=== PATIENT | male | born 1940 ===

== ENCOUNTER 2017-01-12 14:57 | Inpatient (IN) | payer MEDICARE, BC ==
[~2017-01-12] VITALS: Ht 180.3 cm; Wt 93.0 kg
--- NOTE | 2017-01-12 17:05 | NUR ---
ADMITTED A 76 YEAR OLD MALE PATIENT FROM [facility] WITH ADMITTING DIAGNOSIS OF LEFT ANKLE FRACTURE, ACCOMPANIED BY 2 EMT STAFF ON A GURNEY VIA AMBULANCE PT IS ALERT AND ORIENTED, ABLE TO VERBALIZE NEEDS, NO SOB, DISTRESS OR DISCOMFORTS NOTED AT THIS TIME. ALL NEEDS WERE ATTENDED AND ANTICIPATED, PT ORIENTED TO HOSPITAL UNIT. ENCOURAGED PATIENT TO USE CALL LIGHT WHENEVER ASSISTANCE IS NEEDED. NO WEIGHT BEARING ON LEFT LEG REPORTED BY REPORTING NURSE. PER REPORTING NURSE NOT TO TOUCH THE LEFT LEG DRESSING UNTIL SEEN BY DR. LUCIA (ORTHO). WILL CONTINUE TO MONITOR. PAGED DR. CRUZ FOR MED RECON.
[2017-01-12] MEDS ORDERED: ZOLPIDEM 5 MG TABLET PO PRN (17:30)
[2017-01-12] MEDS ORDERED: ACETAMINOPHEN 325 MG TABLET PO PRN (17:30)
[2017-01-12] MEDS ORDERED: ONDANSETRON 4 MG/2 ML VIAL IV PRN (17:30)
[2017-01-12] MEDS ORDERED: MAGNESIUM HYDROXIDE 30 ML LIQUID UDC PO PRN (17:30)
[2017-01-12] MEDS ORDERED: HYDROCODONE/APAP 5-325MG TABLET PO PRN (17:30)
[2017-01-12] MEDS ORDERED: Z GUARD REMEDY PASTE 57 GM TUBE TOP PRN (17:30)
[2017-01-12] MEDS ORDERED: ONDA4TAB8 PO (17:44)
[2017-01-12] MEDS ORDERED: PRAV40TA3 PO (17:44)
[2017-01-12] MEDS ORDERED: FLUT1DIS28 IH (17:44)
[2017-01-12] MEDS ORDERED: CALC0.253 PO (17:44)
[2017-01-12] MEDS ORDERED: AMLO5TAB2 PO (17:44)
[2017-01-12] MEDS ORDERED: SAXA5TAB PO (17:44)
[2017-01-12] MEDS ORDERED: PIPE2.257 IV (17:44)
[2017-01-12] MEDS ORDERED: MONT10TA22 PO (17:44)
[2017-01-12] MEDS ORDERED: HYDR-3326 PO (17:44)
[2017-01-12] MEDS ORDERED: ALLO100T PO (17:44)
[2017-01-12] MEDS ORDERED: DEXTROSE 50% 50 ML DISP.SYRIN IV PRN (17:45)
--- NOTE | 2017-01-12 18:18 | NUR ---
talked to top case assembler about status of left ankle. since no surgery is done, jamila PT will follow up with Dr. Benson for PT orders. pt may possibly have surgery within a few days. will await orders.
[2017-01-12 18:19] VITALS: BP 150/86
--- NOTE | 2017-01-12 19:30 | NUR ---
Received patient in bed. Alert and verbally responsive. Able to make needs known. Denies any pain and discomfort. No acute distress. No SOB. Kept clean and dry. All needs attended to promptly. Call light within reach. Will continue to monitor.
[2017-01-12] MEDS ORDERED: ONDANSETRON ODT 4 MG TAB.RAPDIS SL PRN (20:00)
[2017-01-12] MEDS: ATORVASTATIN 10 MG TABLET PO SCH (20:19)
[2017-01-12] MEDS: HYDROCODONE/APAP 5-325MG TABLET PO PRN (20:20)
[2017-01-12] MEDS: BLOOD SUGAR DIAGNOSTIC 1 EACH STRIP VI SCH (20:22)
[2017-01-12 20:27] VITALS: BP 147/89
[2017-01-12] MEDS ORDERED: DOCUSATE SODIUM 100 MG CAPSULE PO SCH (21:00)
[2017-01-12] MEDS ORDERED: PIPERACILLIN/TAZO/D5W 2.25 GM FROZ.PIGGY IV SCH (22:00)
[2017-01-12] MEDS: PIPERACILLIN/TAZOBACTAM/D5W 2.25 G in PREMIXED 1 EACH IV SCH (22:22)
--- NOTE | 2017-01-13 00:59 | NUR ---
Patient complaining of tossing and turning and not being able to sleep. Dr. Franklin made aware with new orders for Ambien 5 mg PO HSPRN. New orders noted and carried out. All needs attended to promptly. Call light within reach. will continue to monitor.
[2017-01-13] MEDS: ZOLPIDEM 5 MG TABLET PO PRN (01:06)
[2017-01-13] MEDS ORDERED: ZOLPIDEM 5 MG TABLET ONE (01:20)
[2017-01-13 03:40] VITALS: BP 140/84
--- NOTE | 2017-01-13 03:40 | NUR ---
Patient found sitting on floor. Leon bed alarm go off and went to check on patient, patient was noted to be sitting up on the floor. Assisted back to bed with 4 person assist. Patient is alert and verbally responsive. Able to make needs known. Asked patient what happened and Per patient, he verbalized, "I wanted to get out of bed for the heck of it. I was tired of just being in bed and wanted to see if I could walk to the bathroom." Reminded patient that he needs to call for help when help is needed. Verbalized understanding. Full body assessment done. Per patient he did not hit his head. Able to move upper extremity within normal limits. IV site on right forearm in place. Pt. admitted with left ankle fracture (no surgery), left ankle with cast and only complains of pain at site.No dislocation noted. Right leg is within normal limits. No s/s of bleeding noted noted. V/S are stable T: 98.2, P: 72, BP: 140/84, R:19, O2 sat: 94%. Dr. Urban made aware of patient fall. No new orders at this time. All needs attended to promptly. Call light within reach. Bed in low position. Bed alarm on. Will continue to monitor.
--- NOTE | 2017-01-13 06:30 | NUR ---
Patient slept comfortably throughout the night. Alert and verbally responsive. No c/o pain and discomfort at this time. No acute distress. No SOB. IV site intact. Left splint intact. All needs attended to promptly. Call light within reach. Will continue to monitor.
[2017-01-13] MEDS: PIPERACILLIN/TAZOBACTAM/D5W 2.25 G in PREMIXED 1 EACH IV SCH ×3 (06:31→21:29)
[2017-01-13] MEDS: BLOOD SUGAR DIAGNOSTIC 1 EACH STRIP VI SCH ×4 (06:33→21:21)
[2017-01-13] MEDS ORDERED: PANTOPRAZOLE SODIUM 40 MG TABLET.DR PO SCH (07:00)
[2017-01-13 07:05] LABS: BASOPHILS # (AUTO) 0.1 K/uL (0.0-8.0); BASOPHILS % (AUTO) 0.8 % (0.0-2.0); EOSINOPHILS # (AUTO) 0.7 K/uL (0.0-0.7); EOSINOPHILS % (AUTO) 7.4 % (0.0-7.0); HEMATOCRIT 38.7 % (40-50); HEMOGLOBIN 13.2 G/DL (14.0-18.0); LYMPHOCYTES % (AUTO) 11.2 % (20.5-51.5); MEAN CORPUSCULAR HEMOGLOBIN 30.5 UUG (27.0-31.0); MEAN CORPUSCULAR HGB CONC 34 g/dL (32.0-37.0); MEAN CORPUSCULAR VOLUME 89.3 FL (82.0-92.0); MONOCYTES # (AUTO) 0.8 K/UL (0.1-1.30); MONOCYTES % (AUTO) 9.4 % (0.0-11.0); NEUTROPHILS # (AUTO) 6.2 K/UL (1.8-8.9); NEUTROPHILS % (AUTO) 71.2 % (38.5-71.5); PLATELET COUNT (AUTO) 163 K/UL (150-450); RED BLOOD CELL COUNT(AUTO) 4.33 MIL/UL (4.7-6.1); WHITE BLOOD COUNT (AUTO) 8.8 K/UL (4.0-11.2)
[2017-01-13 07:24] LABS: CARBON DIOXIDE 25 mmol/L (21-32); CHLORIDE 110 mmol/L (98-107); CHOLESTEROL 125 mg/dL (<200); CREATININE 3.2 mg/dL (0.6-1.3); GLUCOSE 82 mg/dL (74-106); HDL CHOLESTEROL 40 mg/dL (40-60); MAGNESIUM 2.1 mg/dL (1.8-2.4); PHOSPHOROUS 3.9 mg/dL (2.5-4.9); TRIGLYCERIDES 131 MG/DL (30-150); UREA NITROGEN, BLOOD 58 mg/dL (7-18)
[2017-01-13 08:00] VITALS: BP 157/84
[2017-01-13] MEDS: FLUTICASONE/VILANTEROL 1 EACH BLST.W.DEV INH SCH (08:54)
[2017-01-13] MEDS: CALCITRIOL 0.25 MCG CAPSULE PO SCH (08:56)
[2017-01-13] MEDS: ALLOPURINOL 100 MG TABLET PO SCH (08:57)
[2017-01-13] MEDS: MONTELUKAST SODIUM 10 MG TABLET PO SCH (08:58)
[2017-01-13] MEDS: AMLODIPINE 5 MG TABLET PO SCH (08:58)
[2017-01-13] MEDS: HYDROCODONE/APAP 5-325MG TABLET PO PRN ×3 (08:59→21:24)
[2017-01-13] MEDS ORDERED: FLUTICASONE/SALMETEROL 250/50 INHALER IH SCH (09:00)
[2017-01-13 10:39] LABS: BAND % (MANUAL) 2 % (0-10); EOSINOPHILS % (MANUAL) 9 % (0-8); LYMPHOCYTES % (MANUAL) 10 % (20-40); MONOCYTES % (MANUAL) 8 % (2-10); NEUTROPHILS % (MANUAL) 71 % (42-75)
[2017-01-13] MEDS: ONGLYZA 5 MG PO SCH (13:43)
--- NOTE | 2017-01-13 19:30 | NUR ---
Received pt in bed, appearing to be asleep but easily arousable to verbal stimuli and light touch. Verbally responsive and able to make needs known. Denies pain or discomfort at this time. No acute distress noted. Left forearm IV noted, 20g intact and patent, saline locked. All safety measures and fall precautions maintained. Call light within reach. Will continue to monitor.
[2017-01-13 20:55] VITALS: BP 142/86
[2017-01-13] MEDS: ATORVASTATIN 10 MG TABLET PO SCH (21:21)
[2017-01-14] MEDS: HYDROCODONE/APAP 5-325MG TABLET PO PRN ×5 (01:26→21:01)
[2017-01-14] MEDS: ZOLPIDEM 5 MG TABLET PO PRN ×2 (01:26→20:49)
[2017-01-14] MEDS: PIPERACILLIN/TAZOBACTAM/D5W 2.25 G in PREMIXED 1 EACH IV SCH ×3 (06:13→22:04)
--- NOTE | 2017-01-14 06:22 | NUR ---
Pt slept comfortably throughout most of the shift, waking intermittently to ask for pain medications. Medicated for pain per MD order. Well tolerated. Verbally responsive and able to make needs known. No acute distress noted. All due medications given as ordered, well tolerated. Kept clean and dry. All needs met promptly. All safety measures and fall precautions maintained. Call light within reach. Will continue to monitor.
[2017-01-14] MEDS: BLOOD SUGAR DIAGNOSTIC 1 EACH STRIP VI SCH ×4 (06:35→20:49)
[2017-01-14 08:35] VITALS: BP 130/80
[2017-01-14] MEDS: AMLODIPINE 5 MG TABLET PO SCH (08:50)
[2017-01-14] MEDS: MONTELUKAST SODIUM 10 MG TABLET PO SCH (08:50)
[2017-01-14] MEDS: ALLOPURINOL 100 MG TABLET PO SCH (08:50)
[2017-01-14] MEDS: FLUTICASONE/VILANTEROL 1 EACH BLST.W.DEV INH SCH (08:50)
[2017-01-14] MEDS: CALCITRIOL 0.25 MCG CAPSULE PO SCH (08:51)
[2017-01-14] MEDS: ONGLYZA 5 MG PO SCH (08:51)
--- NOTE | 2017-01-14 09:07 | NUR ---
Received patient awake, alert x4. Up with occupational therapy. With pain over left ankle rated as 6/10, requesting for pain medications but not due at the moment. Skin tear over left knee, dressed and covered with band-aid.
--- NOTE | 2017-01-14 10:11 | NUR ---
Pain over left ankle rated as 6/10. Asked for pain medications. PRN [place] given.
--- NOTE | 2017-01-14 10:22 | NUR ---
Called Dr. Chew's clinic, clinic closed. Will endorse to follow up time of scheduled follow up check up on 01/23/17
[2017-01-14 19:48] VITALS: BP 135/89
--- NOTE | 2017-01-14 20:00 | NUR ---
RECEIVED PATIENT AWAKE IN BED. A/O X4. NO C/O PAIN AT THIS TIME. NO RESP. DISTRESS NOTED. LEFT LEG NOTED IN A SPLINT WRAPPED IN JESSICA WRAP BANDAGE. DRESSING NOTED TO BE CLEAN, DRY AND INTACT. H/L INTACT AND PATENT, NOTED TO LEFT FA #20 GAUGE. BED ALARM ON. CALL LIGHT IN REACH. ALL NEEDS ATTENDED. WILL CONTINUE TO MONITOR.
--- NOTE | 2017-01-14 20:05 | NUR ---
PATIENT STATED THAT HE IS UNABLE TO FEEL HIS TOES DUE TO HIS NEUROPATHY. TOES NOTED TO BE WARM TO TOUCH. WILL CONTINUE TO MONITOR. ALL NEEDS ATTENDED.
[2017-01-14] MEDS: INSULIN REGULAR, HUMAN 300 UNIT/3 ML VIAL SQ PRN (20:49)
[2017-01-14] MEDS: ATORVASTATIN 10 MG TABLET PO SCH (20:49)
--- NOTE | 2017-01-14 21:00 | NUR ---
PATIENT REQUESTING PAIN MEDICATION. PATIENT GIVEN NORCO 1 TAB PO PRN FOR PAIN. PATIENT ALSO REQUESTING TO HAVE SLEEPING PILL. PATIENT GIVEN AMBIEN 5MG PO PRN FOR SLEEP. BED ALARM ON FOR SAFETY. CALL LIGHT IN REACH. ALL NEEDS ATTENDED. WILL CONTINUE TO MONITOR.
--- NOTE | 2017-01-15 | NUR ---
PATIENT ASLEEP IN BED. NO S/S OF PAIN OR DISCOMFORT. NO RESP. DISTRESS NOTED. CALL LIGHT IN REACH. ALL NEEDS ATTENDED. WILL CONTINUE TO MONITOR.
[2017-01-15] MEDS: HYDROCODONE/APAP 5-325MG TABLET PO PRN (05:50)
--- NOTE | 2017-01-15 05:50 | NUR ---
PATIENT AWAKE IN BED. C/O PAIN IN LEFT ANKLE. PATIENT GIVEN NORCO 1 TAB PO PRN FOR PAIN. SLEPT AT INTERVALS THROUGHOUT THE NIGHT. BED ALARM ON. CALL LIGHT IN REACH. ALL NEEDS ATTENDED. WILL CONTINUE TO MONITOR.
[2017-01-15] MEDS: PIPERACILLIN/TAZOBACTAM/D5W 2.25 G in PREMIXED 1 EACH IV SCH ×3 (05:54→21:08)
[2017-01-15] MEDS: BLOOD SUGAR DIAGNOSTIC 1 EACH STRIP VI SCH ×4 (06:49→20:19)
--- NOTE | 2017-01-15 07:00 | NUR ---
PATIENT AWAKE IN BED. PATIENT STILL C/O PAIN IN LEFT ANKLE. PATIENT WAS GIVEN NORCO 5/325MG PO PRN FOR PAIN AT 0550. NORCO INEFFECTIVE. ENDORSED TO DAYSHIFT RN TO INFORM MD AND ADJUST PAIN MEDICATION. BOARD CERTIFIED MUSIC THERAPIST NOTIFIED. FOOT/TOES WARM TO TOUCH, DRESSING CLEAN,DRY AND INTACT. ELEVATED ANKLE ON PILLOW. WILL CONTINUE TO MONITOR.
[2017-01-15 08:14] VITALS: BP 138/76
[2017-01-15] MEDS: FLUTICASONE/VILANTEROL 1 EACH BLST.W.DEV INH SCH (08:23)
[2017-01-15] MEDS: ONGLYZA 5 MG PO SCH (08:27)
[2017-01-15] MEDS: CALCITRIOL 0.25 MCG CAPSULE PO SCH (08:28)
[2017-01-15] MEDS: AMLODIPINE 5 MG TABLET PO SCH (08:28)
[2017-01-15] MEDS: ALLOPURINOL 100 MG TABLET PO SCH (08:28)
[2017-01-15] MEDS: MONTELUKAST SODIUM 10 MG TABLET PO SCH (08:28)
--- NOTE | 2017-01-15 08:31 | NUR ---
Received patient awake, alert x4. Up with therapy. Still with pain over left ankle rated as 7/10, warm with decreased sensation. Not in any from of distress.
--- NOTE | 2017-01-15 10:54 | NUR ---
With pain over left ankle rated as 7/10. PRN Percocet given.
[2017-01-15] MEDS: OXYCODONE/APAP 5-325 MG TABLET PO PRN ×3 (10:56→20:11)
--- NOTE | 2017-01-15 14:00 | NUR ---
UP WITH PHYSICAL THERAPY, TOLERATING THERAPY WELL.
--- NOTE | 2017-01-15 15:00 | NUR ---
IV AT LEFT FOREARM LEAKING. STARTED IV ON RIGHT FORE ARM G#20, PATENT AND INTACT
--- NOTE | 2017-01-15 15:15 | NUR ---
Pain over left ankle rated as 6/10. PRN Percocet given.
--- NOTE | 2017-01-15 20:00 | NUR ---
RECEIVED PATIENT AWAKE IN BED. A/O X4. C/O PAIN IN LEFT FOOT/ANKLE AREA AND ALSO C/O DISCOMFORT ON RIGHT FOOT. VS WNL. H/L INTACT AND PATENT, NOTED TO RIGHT FA #20 GAUGE. NO RESP. DISTRESS NOTED. CALL LIGHT IN REACH. BED ALARM ON. ALL NEEDS ATTENDED.
[2017-01-15 20:03] VITALS: BP 140/82
--- NOTE | 2017-01-15 20:11 | NUR ---
PATIENT GIVEN PERCOCET 2 TABS PO PRN FOR PAIN. WILL CONTINUE TO MONITOR.
[2017-01-15] MEDS: ATORVASTATIN 10 MG TABLET PO SCH (20:19)
[2017-01-15] MEDS: INSULIN REGULAR, HUMAN 300 UNIT/3 ML VIAL SQ PRN (20:21)
--- NOTE | 2017-01-15 20:30 | NUR ---
LEFT LOWER EXTREMITY NOTED IN SPLINT WRAPPED IN JESSICA BANDAGE. TOES ARE NOTED WARM TO TOUCH. PATIENT IS ABLE TO WIGGLE TOES, BUT PATIENT VERBALIZED HE IS UNABLE TO "FEEL HIS TOES DUE TO HIS DIABETIC NEUROPATHY." WILL CONTINUE TO MONITOR AND ASSESS.
[2017-01-15] MEDS ORDERED: TEMAZEPAM 15 MG CAPSULE ONE (20:58)
--- NOTE | 2017-01-15 21:00 | NUR ---
PATIENT GIVEN RESTORIL 15MG PO PRN FOR SLEEP REQUESTED PER PATIENT. BED ALARM ON. CALL LIGHT IN REACH. ALL NEEDS ATTENDED. WILL CONTINUE TO MONITOR.
[2017-01-15] MEDS: TEMAZEPAM 15 MG CAPSULE PO PRN (21:06)
--- NOTE | 2017-01-15 23:00 | NUR ---
PATIENT ASLEEP IN BED. S/S OF PAIN OR DISCOMFORT. NO RESP. DISTRESS NOTED. BED ALARM ON. CALL LIGHT IN REACH. ALL NEEDS ATTENDED.
[2017-01-16] MEDS: PIPERACILLIN/TAZOBACTAM/D5W 2.25 G in PREMIXED 1 EACH IV SCH ×3 (06:32→22:08)
[2017-01-16] MEDS: BLOOD SUGAR DIAGNOSTIC 1 EACH STRIP VI SCH ×4 (06:32→20:58)
[2017-01-16] MEDS: OXYCODONE/APAP 5-325 MG TABLET PO PRN ×3 (06:33→18:47)
--- NOTE | 2017-01-16 06:35 | NUR ---
PATIENT AWAKE IN BED. C/O PAIN IN LEFT ANKLE. PATIENT GIVEN PERCOCET 2 TABS PO PRN FOR PAIN. SLEPT WELL THROUGHOUT THE NIGHT. RESTORIL EFFECTIVE. CALL LIGHT IN REACH. ALL NEEDS ATTENDED.
[2017-01-16 08:00] VITALS: BP 138/83
--- NOTE | 2017-01-16 08:00 | NUR ---
Received patient awake, alert x4. With pain over Left ankle rated as 3/10. Able to move toes, foot warm to touch with decreased sensation. Not in any form of distress. Will continue to monitor.
[2017-01-16] MEDS: FLUTICASONE/VILANTEROL 1 EACH BLST.W.DEV INH SCH (08:08)
[2017-01-16] MEDS: ONGLYZA 5 MG PO SCH (08:09)
[2017-01-16] MEDS: MONTELUKAST SODIUM 10 MG TABLET PO SCH (08:10)
[2017-01-16] MEDS: AMLODIPINE 5 MG TABLET PO SCH (08:10)
[2017-01-16] MEDS: CALCITRIOL 0.25 MCG CAPSULE PO SCH (08:10)
[2017-01-16] MEDS: ALLOPURINOL 100 MG TABLET PO SCH (08:10)
--- NOTE | 2017-01-16 09:54 | NUR ---
Called Dr. Chew's office. Follow-up check-up on January at 9:00 AM.
--- NOTE | 2017-01-16 19:30 | NUR ---
Talked to patient during rounds, on bed, awake, alert and verbally responsive. Breathing even and nonlabored. Vitals signs taken, WNL. Patient complained of pain but reminded patient he just taken his pain med. Offered to for some nonpharmacological interventions but patient refused. Helped patient positioned comfortably in bed. Placed side-table within his reach with his call light.
[2017-01-16 20:01] VITALS: BP 124/73
[2017-01-16] MEDS: TEMAZEPAM 15 MG CAPSULE PO PRN (20:33)
[2017-01-16] MEDS: ATORVASTATIN 10 MG TABLET PO SCH (20:33)
[2017-01-17] MEDS: OXYCODONE/APAP 5-325 MG TABLET PO PRN ×4 (02:04→22:06)
[2017-01-17] MEDS: PIPERACILLIN/TAZOBACTAM/D5W 2.25 G in PREMIXED 1 EACH IV SCH ×3 (06:18→22:13)
[2017-01-17] MEDS: BLOOD SUGAR DIAGNOSTIC 1 EACH STRIP VI SCH ×4 (06:58→20:29)
--- NOTE | 2017-01-17 07:02 | NUR ---
Patient slept until 5am and was up because he said he's ready for his appointment. Helped patient in dressing up. Patient appreciated the help. Patient is up on his wheelchair ready for his appointment today.
[2017-01-17] MEDS: ALLOPURINOL 100 MG TABLET PO SCH (08:07)
[2017-01-17] MEDS: MONTELUKAST SODIUM 10 MG TABLET PO SCH (08:07)
[2017-01-17] MEDS: AMLODIPINE 5 MG TABLET PO SCH (08:08)
[2017-01-17] MEDS: CALCITRIOL 0.25 MCG CAPSULE PO SCH (08:09)
[2017-01-17] MEDS: FLUTICASONE/VILANTEROL 1 EACH BLST.W.DEV INH SCH (08:09)
[2017-01-17] MEDS: ONGLYZA 5 MG PO SCH (08:09)
[2017-01-17 08:45] VITALS: BP 135/78
--- NOTE | 2017-01-17 09:03 | NUR ---
PT SEEN ON ROUNDING. pt vitals stable. vitals elevated. pt given meds as prescribed. pt took pills whole. pt used the urinal to void. pt iv site intact and running fluids. pt ate breakfast 100%. pt left ankle still in a cast unopened. pt will be leaving for an appointment. out on pass signed and witnessed. pt given pain meds for pain. will continue to monitor. Addendum: 01/17/17 at 0954 by BOB WHALEY RN pt vitals upon discharge. 135/78 hr 79. pt afebrile. o2 98%. pain meds given prior to transfer.
--- NOTE | 2017-01-17 11:03 | NUR ---
pt returned from appointment. md sanchez has orders for post op preop and for witholding medications. see chart. pt will have surgery at january 20 2017 at 1:00pm. prefers to have patient to arrive at 11:00 PM at [facility]. pre surgery instructions: pt alie need medical clearance from pcp. pt also needs cardio clearance if pt is seen by communications equipment installer. if pt is taking blood thinners, anesthesia requires a signed letter from communications equipment installer to discontinue blood thinning medications 5 to 7 days prior to surgery. lab work needs to be done 7 to 10 days for surgery. pt needs to have ekg and chest xray done within 3 months and provide copy to the office. otc medications such as vitamins aleve advil ibuprofen motrin excedrin, emily and all anti inflammatories must be discontinued at least 10 days prior to surgery date. pt needs to be Npo 8 hours prior to surgery or it will be cancelled. post op instructions on chart. will notify md and bilingual patient support caseworker to set up arrangement and proper orders.
--- NOTE | 2017-01-17 11:15 | NUR ---
pt to be non weight bearing allowed. keep foot elevated to help with swelling. md sanchez ordered to have aquacel silver to the are of the fracture blisters every other day until surgery date,.
[2017-01-17] MEDS: INSULIN REGULAR, HUMAN 300 UNIT/3 ML VIAL SQ PRN ×2 (13:38→20:34)
--- NOTE | 2017-01-17 18:19 | NUR ---
pt had ekg done. pt/ptt with cbc will be done tomorrow at 8. chest x ray will be done later tomorrow in the afternoon. pt stable throughout the day. pt has itching on iv site. pt will be given benadryl. pt ate throughout the day. pt used urinal. no bm noted. h and p copy still needed. all preop paperwork will be sent tomorrow such as ekg h and p cbc and pt/ptt. will endorse to operations supervisor 2nd shift nurse.
--- NOTE | 2017-01-17 20:00 | NUR ---
Patient seen during rounds laying on bed, awake and not in respiratory distress. Vital signs taken WNL. Patient complaining of pain on left ankle fracture. Checked the eMar documentation, explained to patient he was just given 2 hrs ago. Provided nonpharmacological interventions, elevated BLE with pillow. Patient was also asking for his Benadryl for itchiness on his IV site. Informed the patient I will check for the new order. Promoted safety measures. Call light within reach. Will continue to monitor.
[2017-01-17 20:09] VITALS: BP 140/81
[2017-01-17] MEDS: ATORVASTATIN 10 MG TABLET PO SCH (20:29)
[2017-01-17] MEDS: TEMAZEPAM 15 MG CAPSULE PO PRN (20:30)
[2017-01-17] MEDS ORDERED: diphenhydrAMINE 25 MG CAP PO PRN (22:00)
--- NOTE | 2017-01-17 22:00 | NUR ---
Dr. Jade with new order of Benadryl 25 mg PO Q6H PRN for itchiness. Given to patient per request.
[2017-01-17] MEDS ORDERED: diphenhydrAMINE 25 MG CAP PO ONE (22:17)
[2017-01-18] MEDS: PIPERACILLIN/TAZOBACTAM/D5W 2.25 G in PREMIXED 1 EACH IV SCH ×3 (06:12→22:14)
[2017-01-18] MEDS: BLOOD SUGAR DIAGNOSTIC 1 EACH STRIP VI SCH ×4 (07:04→20:37)
[2017-01-18] MEDS: CALCITRIOL 0.25 MCG CAPSULE PO SCH (08:03)
[2017-01-18] MEDS: AMLODIPINE 5 MG TABLET PO SCH (08:03)
[2017-01-18] MEDS: MONTELUKAST SODIUM 10 MG TABLET PO SCH (08:03)
[2017-01-18] MEDS: ONGLYZA 5 MG PO SCH (08:04)
[2017-01-18] MEDS: ALLOPURINOL 100 MG TABLET PO SCH (08:12)
[2017-01-18] MEDS: FLUTICASONE/VILANTEROL 1 EACH BLST.W.DEV INH SCH (08:14)
[2017-01-18] MEDS: INSULIN REGULAR, HUMAN 300 UNIT/3 ML VIAL SQ PRN ×3 (08:22→20:54)
[2017-01-18 08:24] VITALS: BP 146/63
[2017-01-18 08:44] LABS: BASOPHILS # (AUTO) 0.1 K/uL (0.0-8.0); BASOPHILS % (AUTO) 0.8 % (0.0-2.0); EOSINOPHILS # (AUTO) 0.6 K/uL (0.0-0.7); HEMOGLOBIN 13.2 g/dL (12.5-16.3); LYMPHOCYTES % (AUTO) 12.8 % (20.5-51.5); MEAN CORPUSCULAR HEMOGLOBIN 30.9 uug (23.8-33.4); MEAN CORPUSCULAR HGB CONC 35 g/dL (32.5-36.3); MEAN CORPUSCULAR VOLUME 88.9 fL (73.0-96.2); MONOCYTES # (AUTO) 0.7 K/uL (2.0-10.0); MONOCYTES % (AUTO) 8.9 % (0.0-11.0); NEUTROPHILS # (AUTO) 5.6 K/uL (1.8-8.9); NEUTROPHILS % (AUTO) 69.5 % (38.5-71.5); PLATELET COUNT (AUTO) 228 K/uL (152-348); RED BLOOD CELL COUNT(AUTO) 4.28 MIL/uL (4.06-5.63)
--- NOTE | 2017-01-18 08:54 | NUR ---
pt seen on rounding. pt continues to complain of pain on left ankle. offered pain meds. pt states he wants it later. bp elevated pt given bp med given. will reassess. pt continues to have iv site intact. no infiltration noted. will continue to monitor.
[2017-01-18] MEDS: OXYCODONE/APAP 5-325 MG TABLET PO PRN ×3 (09:37→23:06)
--- NOTE | 2017-01-18 13:52 | NUR ---
INTERDISCIPLINARY TEAM SUMMARY
--- NOTE | 2017-01-18 14:41 | NUR ---
no photos were taken on left ankle. no orders were given to open incision site. wiill continue to monitor for swelling on leg.
--- NOTE | 2017-01-18 18:45 | NUR ---
pt stable throughout the day. pt continues to have pain. pt meds given. blood draw for pt/ptt. pt also had chest xray with cd done. pt had cardio clearance from dr zeinab riggins. med list and h & p done. med clearance done. POLST NOT DONE. all other files faxed to [facility]. will endorse to shift superintendent nurse.
[2017-01-18 19:45] VITALS: BP 136/77
--- NOTE | 2017-01-18 19:55 | NUR ---
Pt. on bed, alert, awake and not in respiratory distress. Vital signs taken,informed him that it's WNL. Still in pain on his left ankle, pain scale is 8/10. Informed pt. he just had his pain med 2 hrs ago. LLE still wrapped with bandage and with immobilizer. Elevated it with pillow, palpitated his toes no swelling noted, but still in pain. Turned the TV on as diversional activity. Call light in reach. Will continue to monitor the pt.
[2017-01-18] MEDS: TEMAZEPAM 15 MG CAPSULE PO PRN (20:36)
[2017-01-18] MEDS: ATORVASTATIN 10 MG TABLET PO SCH (22:13)
--- NOTE | 2017-01-18 22:55 | NUR ---
Percocet 5/325mg given per patient's request. Pain Scale of 9/10. will continue to monitor.
--- NOTE | 2017-01-19 02:24 | NUR ---
Did hourly rounds and pt. found seated on his bed. Went inside the room and asked if he's okay. He said he feels uncomfortable laying in his back the whole time that's why he wanted to be seated for while. Reminded pt not to stand for his safety. Stayed in the room for awhile, assessed pt., pt is in pain PS 7/10 but pain med is not yet due til 3am. Listened to pt's concern since he appeared to be so worried and anxious. He said he wanted to get over all these things, the surgery, the therapy etc, he wanted to be back home soon with his . Instructed patient to do deep breathing exercises and gave him some sips of water. After 20 mins patient said he will try to sleep again but he wanted his pain med when it's due at 3am. Assured the pt that I will give his pain med in due time. Placed call light in reach. will continue to monitor the pt.
--- NOTE | 2017-01-19 02:54 | NUR ---
went in to check the pt., pt sleeping soundly. will not give his pain med for now. will continue to monitor.
[2017-01-19] MEDS: PIPERACILLIN/TAZOBACTAM/D5W 2.25 G in PREMIXED 1 EACH IV SCH (06:09)
[2017-01-19] MEDS: OXYCODONE/APAP 5-325 MG TABLET PO PRN ×3 (06:10→21:05)
[2017-01-19] MEDS: INSULIN REGULAR, HUMAN 300 UNIT/3 ML VIAL SQ PRN ×3 (06:35→21:00)
[2017-01-19] MEDS: BLOOD SUGAR DIAGNOSTIC 1 EACH STRIP VI SCH ×4 (06:36→20:57)
--- NOTE | 2017-01-19 07:06 | NUR ---
pt. slept around 3am until this morning. Percocet 5/325mg 2 tabs given per pt's request. Acu check done FBS 118 mg/dL, no action needed. will endorse to morning shift nurse.
[2017-01-19 07:30] VITALS: BP 126/72
[2017-01-19] MEDS: ALLOPURINOL 100 MG TABLET PO SCH (08:22)
[2017-01-19] MEDS: AMLODIPINE 5 MG TABLET PO SCH (08:23)
[2017-01-19] MEDS: MONTELUKAST SODIUM 10 MG TABLET PO SCH (08:23)
[2017-01-19] MEDS: CALCITRIOL 0.25 MCG CAPSULE PO SCH (08:24)
[2017-01-19] MEDS: ONGLYZA 5 MG PO SCH (08:25)
[2017-01-19] MEDS: FLUTICASONE/VILANTEROL 1 EACH BLST.W.DEV INH SCH (08:26)
--- NOTE | 2017-01-19 08:26 | NUR ---
[employer] Housing Inspectors met with patient at bedside to assess his needs and provide support. Patient is a 76 year old male admitted to ARU after he suffered a fall, twisting his left ankle leading to lateral malleolus fracture, with deltoid ligament rupture and widening of Mortis. Subsequently, the patient developed severe swelling of the ankle/foot associated with cellulitis. Patient was seen by Ortho who recommended surgery after the swelling and cellulitis subsided. He was therefore on immobilizer and started on antibiotics. The patient is also noted to have uncontrolled DM and HTN with acute renal failure. He is now medically stable and is transferred to ARU due to functional and mobility impairment. Patient reports that he is "a little sore right now," and "is anxious for the surgery I'm having on Monday" (01/20/17). Mental Status: Patient appeared alert and oriented x4 during interview. He presented with euthymic mood accompanied by appropriate affect. He reported that he is feeling anxious about his upcoming surgery, but "has hope that everything will go well." Patient has been in the hospital since January 12, 2017. Patient is pleasant and cooperative. Patient appears to be coping well with ARU interventions. He stated, "I've had great numbers for my blood since I started coming here...I've never had numbers so good." Support System: Patient is and mentioned 1 son who lives in the [facility] area. During the interview, patient's (also a patient) and two friends were bedside. Per patient, "My friends care so deeply about me, and I'm very thankful." Patient also reported that he is involved in his [employer] and is part of a support group there called the "[employer]," where the mindset is to "always get better at supporting one another." Goals: Patient reports that his goal is to get better and be able to live in his own home with his . Interventions: Housing Inspectors engaged in active listening. hospital social worker provided emotional support and counseling. SW will provide linkage to case management. SW provided caregiving referrals to patient and family. SW will encourage pt to comply with rehab goals.
--- NOTE | 2017-01-19 13:34 | NUR ---
I agree Addendum: 01/19/17 at 1338 by SHAINA GIBSON OT Amended: Links added.
--- NOTE | 2017-01-19 19:30 | NUR ---
RECEIVED PATIENT FROM DAY SHIFT NURSE. SHIFT REPORT AT BEDSIDE. PT A/O X4 WITH NO SIGNS OF PAIN, SOB, OR ACUTE DISTRESS. PERTINENT ASSESSMENTS COMPLETED. CALL LIGHT PLACED WITHIN REACH OF PATIENT. WILL CONTINUE TO MONITOR PT THROUGH OUT SHIFT.
[2017-01-19 19:40] VITALS: BP 155/91
[2017-01-19] MEDS: SENNOSIDES/DOCUSATE SODIUM TABLET PO SCH (20:45)
[2017-01-19] MEDS: ATORVASTATIN 10 MG TABLET PO SCH (20:45)
[2017-01-20] MEDS: BLOOD SUGAR DIAGNOSTIC 1 EACH STRIP VI SCH ×2 (06:30→11:30)
--- NOTE | 2017-01-20 06:41 | NUR ---
PATIENT STABLE THROUGH OUT SHIFT. NO SIGNS OF SOB OR ACUTE DISTRESS. SLEPT INTERMITTENTLY DURING THE NIGHT. ALL NEEDS ATTENDED TO. MEDICATIONS ADMINISTERED ORDERED. SAFETY MEASURES IMPLEMENTED. CALL LIGHT PLACED WITHIN REACH. WILL ENDORSE TO DAY SHIFT NURSE.
[2017-01-20 08:00] VITALS: BP 134/84
[2017-01-20] MEDS: ALLOPURINOL 100 MG TABLET PO SCH (08:22)
[2017-01-20] MEDS: MONTELUKAST SODIUM 10 MG TABLET PO SCH (08:22)
[2017-01-20] MEDS: AMLODIPINE 5 MG TABLET PO SCH (08:23)
[2017-01-20] MEDS: ONGLYZA 5 MG PO SCH (08:26)
[2017-01-20] MEDS: FLUTICASONE/VILANTEROL 1 EACH BLST.W.DEV INH SCH (08:26)
[2017-01-20] MEDS: CALCITRIOL 0.25 MCG CAPSULE PO SCH (08:27)
--- NOTE | 2017-01-20 10:30 | NUR ---
DAILY NOTE [facility] HERE TO PICK HIM UP. TAKEN TO [facility] FOR SX ORIF LEFT ANKLE. REPORT GIVEN TO RECEIVING NURSE. MEDICAL RECORDS SENT WITH HIM. VSS NO ACUTE DISTRESS. EXPECTED TO RETURN BACK TO [facility] POST OP TODAY.
--- NOTE | 2017-01-20 20:15 | NUR ---
RECEIVED PATIENT BACK FROM [place] S/P LEFT ANKLE ORIF AT [facility] BY DR. ROBERTSON. PATIENT TRANSFERRED BACK VIA AMBULANCE/GURNEY. PATIENT RETURNED IN STABLE CONDITION. VITAL SIGNS STABLE. NO SIGNS OF PAIN, SOB, OR ACUTE DISTRESS. PERTINENT ASSESSMENT COMPLETED. PATIENT HAS SPLIT CAST ON LEFT FOOT WITH POST OP ORDERS FROM MD TO BE CARRIED OUT. MD HOSPITALIST NOTIFIED OF PATIENT RETURN. CALL LIGHT PLACED WITHIN REACH OF PATIENT. WILL CONTINUE TO MONITOR PATIENT.
[2017-01-20 20:38] VITALS: BP 140/81
[2017-01-20] MEDS ORDERED: OXYCODONE/APAP 5-325 MG TABLET PO PRN (23:00)
[2017-01-21] MEDS ORDERED: OXYCODONE/APAP 5-325 MG TABLET ONE (00:18)
[2017-01-21] MEDS: BLOOD SUGAR DIAGNOSTIC 1 EACH STRIP VI SCH ×5 (00:41→20:21)
[2017-01-21] MEDS ORDERED: INSULIN REGULAR, HUMAN 300 UNIT/3 ML VIAL SQ PRN (00:45)
[2017-01-21] MEDS ORDERED: DEXTROSE 50% 50 ML DISP.SYRIN IV PRN (00:45)
--- NOTE | 2017-01-21 06:21 | NUR ---
ACCUCHECK DONE WITH BS OF 142. WILL ENDORSE TO DAY SHIFT NURSE TO ADMINISTER INSULIN WITH BREAKFAST TRAY.
--- NOTE | 2017-01-21 06:37 | NUR ---
PATIENT STABLE THROUGH OUT SHIFT WITH NO SIGNS OF ACUTE DISTRESS OR SOB. PATIENT SLEPT INTERMITTENTLY THROUGH THE NIGHT. ALL MEDICATIONS ADMINISTERED ORDERED PER MD. SAFETY MEASURES IMPLEMENTED. CALL LIGHT WITHIN REACH OF PATIENT. WILL ENDORSE TO DAY SHIFT NURSE.
[2017-01-21 07:30] VITALS: BP 126/76
[2017-01-21] MEDS ORDERED: BLOOD SUGAR DIAGNOSTIC 1 EACH STRIP VI SCH (07:30)
[2017-01-21] MEDS: ONGLYZA 5 MG PO SCH (08:20)
[2017-01-21] MEDS: FLUTICASONE/VILANTEROL 1 EACH BLST.W.DEV INH SCH (08:20)
[2017-01-21] MEDS: AMLODIPINE 5 MG TABLET PO SCH (08:20)
[2017-01-21] MEDS: CALCITRIOL 0.25 MCG CAPSULE PO SCH (08:21)
[2017-01-21] MEDS: ALLOPURINOL 100 MG TABLET PO SCH (08:22)
[2017-01-21] MEDS: MONTELUKAST SODIUM 10 MG TABLET PO SCH (08:22)
[2017-01-21] MEDS: OXYCODONE/APAP 5-325 MG TABLET PO PRN ×2 (09:32→19:49)
[2017-01-21] MEDS: INSULIN REGULAR, HUMAN 300 UNIT/3 ML VIAL SQ PRN ×3 (09:35→20:24)
--- NOTE | 2017-01-21 19:30 | NUR ---
RECEIVED PATIENT FROM DAY SHIFT NURSE. SHIFT REPORT AT BEDSIDE. PATIENT LYING COMFORTABLY IN BED WITH NO SIGNS OF PAIN, SOB, OR ACUTE DISTRESS. PERTINENT ASSESSMENT COMPLETED. SAFETY MEASURES TO BE IMPLEMENTED. CALL LIGHT PLACED WITHIN REACH OF PATIENT. WILL CONTINUE TO MONITOR PT THROUGH OUT SHIFT.
[2017-01-21 19:40] VITALS: BP 129/78
[2017-01-21] MEDS: ATORVASTATIN 10 MG TABLET PO SCH (20:18)
[2017-01-21] MEDS: SENNOSIDES/DOCUSATE SODIUM TABLET PO SCH (20:18)
[2017-01-21] MEDS: TEMAZEPAM 15 MG CAPSULE PO PRN (23:30)
[2017-01-22] MEDS: BLOOD SUGAR DIAGNOSTIC 1 EACH STRIP VI SCH ×4 (06:31→20:46)
[2017-01-22] MEDS: MAGNESIUM CITRATE 296 ML BOTTLE PO PRN (06:33)
--- NOTE | 2017-01-22 06:43 | NUR ---
PT SLEPT WELL THROUGH THE SHIFT. COMPLAINED OF LEFT ANKLE PAIN BEFORE BED. ADMINISTERED PAIN MEDS ORDERED PER MD. NO SIGNS OF ACUTE DISTRESS OR SOB. ALL NEEDS ATTENDED TO. MEDS ADMINISTERED ORDERED. SAFETY MEASURES IMPLEMENTED. CALL LIGHT WITHIN REACH OF PATIENT. WILL ENDORSE TO DAY SHIFT NURSE.
[2017-01-22 07:05] VITALS: BP 131/78
[2017-01-22] MEDS: OXYCODONE/APAP 5-325 MG TABLET PO PRN ×2 (08:48→12:48)
[2017-01-22] MEDS: FLUTICASONE/VILANTEROL 1 EACH BLST.W.DEV INH SCH (08:49)
[2017-01-22] MEDS: CALCITRIOL 0.25 MCG CAPSULE PO SCH (08:50)
[2017-01-22] MEDS: ONGLYZA 5 MG PO SCH (08:50)
[2017-01-22] MEDS: MONTELUKAST SODIUM 10 MG TABLET PO SCH (08:51)
[2017-01-22] MEDS: ALLOPURINOL 100 MG TABLET PO SCH ×2 (08:51→17:16)
[2017-01-22] MEDS: AMLODIPINE 5 MG TABLET PO SCH (08:52)
[2017-01-22] MEDS: INSULIN REGULAR, HUMAN 300 UNIT/3 ML VIAL SQ PRN ×2 (11:55→20:47)
[2017-01-22] MEDS: HYDROMORPHONE HCL 2 MG TABLET PO PRN ×2 (17:18→22:29)
[2017-01-22 19:45] VITALS: BP 123/59
[2017-01-22 20:00] VITALS: BP 123/59
[2017-01-22] MEDS: ATORVASTATIN 10 MG TABLET PO SCH (20:45)
[2017-01-22] MEDS: SENNOSIDES/DOCUSATE SODIUM TABLET PO SCH (20:46)
[2017-01-23] MEDS: TEMAZEPAM 15 MG CAPSULE PO PRN ×2 (00:29→20:20)
[2017-01-23] MEDS: BLOOD SUGAR DIAGNOSTIC 1 EACH STRIP VI SCH ×4 (06:26→20:20)
[2017-01-23 07:05] VITALS: BP 148/85
--- NOTE | 2017-01-23 08:12 | NUR ---
Patient needs max 2 person assist for am activities of daily living. Bowel movement is large. Small amount of bright red per rectum post bowel movement.
[2017-01-23] MEDS: CALCITRIOL 0.25 MCG CAPSULE PO SCH (08:48)
[2017-01-23] MEDS: MONTELUKAST SODIUM 10 MG TABLET PO SCH (08:48)
[2017-01-23] MEDS: AMLODIPINE 5 MG TABLET PO SCH (08:49)
[2017-01-23] MEDS: HYDROMORPHONE HCL 2 MG TABLET PO PRN ×3 (08:50→17:23)
[2017-01-23] MEDS: ONGLYZA 5 MG PO SCH (08:50)
[2017-01-23] MEDS: FLUTICASONE/VILANTEROL 1 EACH BLST.W.DEV INH SCH (08:50)
[2017-01-23] MEDS: INSULIN REGULAR, HUMAN 300 UNIT/3 ML VIAL SQ PRN ×3 (11:24→20:22)
--- NOTE | 2017-01-23 18:41 | NUR ---
Handoff for night nurse.
--- NOTE | 2017-01-23 20:05 | NUR ---
Received pt on bed alert, awake and oriented x3. Able to make needs known. No acute distress noted. No complaints of pain or discomfort. Breathing even and unlabored with normal respirations. Safety measures observed and maintained. Call light within reach. All needs attended. Will continue to monitor.
[2017-01-23] MEDS: SENNOSIDES/DOCUSATE SODIUM TABLET PO SCH (20:20)
[2017-01-23] MEDS: ATORVASTATIN 10 MG TABLET PO SCH (20:20)
[2017-01-23 21:33] VITALS: BP 149/83
--- NOTE | 2017-01-24 05:25 | NUR ---
Patient slept well throughout the shift. No s/s of distress. Denies pain. Fall precautions maintained. All needs met.
[2017-01-24] MEDS: HYDROMORPHONE HCL 2 MG TABLET PO PRN ×2 (06:20→19:19)
[2017-01-24] MEDS: BLOOD SUGAR DIAGNOSTIC 1 EACH STRIP VI SCH ×4 (06:25→20:11)
[2017-01-24 07:36] VITALS: BP 129/80
--- NOTE | 2017-01-24 08:00 | NUR ---
VSS 97.7-73-18 BP 129/80. SATS 95% ON ROOM AIR. PT. CHER&O X 3 WITH APPROPRIATE AFFECT. SKIN IS INTACT WITH LEFT BELOW THE KNEE TO THE FOOT WITH TOES EXPOSED CAST. TOES SHOW 1+ EDEMAS WITH +ROM AND SENSATION TO ALL LEFT TOES. CAPILLARY REFILL IS <3 SECONDS. CURRENTLY, PATIENT C/O NO PAIN OR DISCOMFORTS. PATIENT SHOWS NO SIGNS OF ACUTE CARDIAC/RESPIRATORY DISTRESS OR SUPPRESSION.
[2017-01-24 08:10] LABS: ALANINE AMINOTRANSFERASE 18 U/L (16-63); ALKALINE PHOSPHATASE 55 U/L (50-136); ASPARTATE AMINOTRANSFERASE 15 U/L (15-37); BILIRUBIN,TOTAL 0.7 mg/dL (0.2-1.0); CARBON DIOXIDE 25 mmol/L (21-32); CHLORIDE 107 mmol/L (98-107); CREATININE 2.6 mg/dL (0.6-1.3); GLUCOSE 152 mg/dL (74-106); MAGNESIUM 3.1 mg/dL (1.8-2.4); PHOSPHOROUS 2.8 mg/dL (2.5-4.9); POTASSIUM 4.3 mmol/L (3.5-5.1); TOTAL PROTEIN, SERUM 7.6 g/dL (6.4-8.2); UREA NITROGEN, BLOOD 61 mg/dL (7-18)
[2017-01-24 08:16] LABS: BASOPHILS # (AUTO) 0.1 K/uL (0.0-8.0); LYMPHOCYTES # (AUTO) 1.1 K/uL (20.0-40.0); MONOCYTES # (AUTO) 0.7 K/uL (2.0-10.0)
[2017-01-24 08:33] LABS: BASOPHILS % (AUTO) 1.2 % (0.0-2.0); EOSINOPHILS # (AUTO) 0.6 K/uL (0.0-0.7); EOSINOPHILS % (AUTO) 5.7 % (0.0-7.0); HEMATOCRIT 43.3 % (36.7-47.1); HEMOGLOBIN 14.8 g/dL (12.5-16.3); LYMPHOCYTES % (AUTO) 11.1 % (20.5-51.5); MEAN CORPUSCULAR HEMOGLOBIN 30.5 uug (23.8-33.4); MEAN CORPUSCULAR HGB CONC 34 g/dL (32.5-36.3); MEAN CORPUSCULAR VOLUME 89.5 fL (73.0-96.2); MONOCYTES % (AUTO) 7.2 % (0.0-11.0); NEUTROPHILS # (AUTO) 7.4 K/uL (1.8-8.9); NEUTROPHILS % (AUTO) 74.8 % (38.5-71.5); PLATELET COUNT (AUTO) 396 K/uL (152-348); RED BLOOD CELL COUNT(AUTO) 4.83 MIL/uL (4.06-5.63); WHITE BLOOD COUNT (AUTO) 9.8 K/uL (3.6-10.2)
[2017-01-24] MEDS: FLUTICASONE/VILANTEROL 1 EACH BLST.W.DEV INH SCH (09:40)
[2017-01-24] MEDS: ONGLYZA 5 MG PO SCH ×2 (09:41→10:03)
[2017-01-24] MEDS: CALCITRIOL 0.25 MCG CAPSULE PO SCH (09:42)
[2017-01-24] MEDS: AMLODIPINE 5 MG TABLET PO SCH (09:42)
[2017-01-24] MEDS: ALLOPURINOL 100 MG TABLET PO SCH (09:42)
[2017-01-24] MEDS: MONTELUKAST SODIUM 10 MG TABLET PO SCH (09:42)
--- NOTE | 2017-01-24 13:00 | NUR ---
PATIENT'S [id number]=339 MG/DL----COVERED WITH 3 UNITS HUMULIN REGULAR INSULIN SQ. PATIENT SHOWS NO SIGNS OF ACUTE HYPO-HYPERGLYCEMIAS. OOB WITH PT/OT IN WHEELCHAIR AND TOLERATED WELL. PATIENT SHOWS NO SIGNS OF ACUTE CARDIAC/RESPIRATORY DISTRESS OR SUPPRESSION.
[2017-01-24] MEDS: INSULIN REGULAR, HUMAN 300 UNIT/3 ML VIAL SQ PRN ×2 (13:01→20:13)
--- NOTE | 2017-01-24 18:30 | NUR ---
PATIENT RESTS QUIETLY IN ROOM. DENIES ANY PAINS OR DISCOMFORTS. [id number]=585 MG/DL----NO INSULIN PER SLIDING SCALE ORDER. PATIENT SHOWS NO SIGNS OF ACUTE CARDIAC/RESPIRATORY DISTRESS OR SUPPRESSION.
--- NOTE | 2017-01-24 19:21 | NUR ---
PATIENT C/O 9/10 LEFT LEG/ANKLE PAIN AND WAS MEDICATED WITH DILAUDID 4 MG PO PRN AT 19:15 P.M. NOC NURSE MADE AWARE OF THESE FACTS AND WILL EVALUATE PATIENT PER MAY. PATIENT SHOWS NO SIGNS OF ACUTE CARDIAC/RESPIRATORY DISTRESS OR SUPPRESSION.
--- NOTE | 2017-01-24 19:30 | NUR ---
RECEIVED PATIENT FROM DAY SHIFT NURSE. SHIFT REPORT AT BEDSIDE. PATIENT A/O X4 WITH NO SIGNS OF SOB OR ACUTE DISTRESS. PT WAS GIVEN PAIN MEDS BY DAY SHIFT NURSE AT START OF SHIFT. PT COMPLAINING OF PAIN. PERTINENT ASSESSMENTS DONE. CALL LIGHT WITHIN REACH OF PATIENT. WILL CONTINUE TO MONITOR PATIENT THROUGH SHIFT.
[2017-01-24 20:00] VITALS: BP 115/66
[2017-01-24] MEDS: ATORVASTATIN 10 MG TABLET PO SCH (20:10)
[2017-01-24] MEDS: SENNOSIDES/DOCUSATE SODIUM TABLET PO SCH (20:10)
[2017-01-24] MEDS: TEMAZEPAM 15 MG CAPSULE PO PRN (23:06)
[2017-01-25] MEDS: BLOOD SUGAR DIAGNOSTIC 1 EACH STRIP VI SCH ×4 (06:32→20:19)
--- NOTE | 2017-01-25 06:40 | NUR ---
Patient slept well through shift. Pt stable through out shift with no signs of acute distress or SOB. Able to make needs known. All meds administered as ordered per MD. Vital signs stable through shift. LLE cast remains clean, dry, & intact. Call light within reach of pt. Will endorse to day shift nurse.
--- NOTE | 2017-01-25 07:53 | NUR ---
Received pt on bed awake and alert. Pleasant and calm. Able to make needs known. In no apparent distress. No complaints of pain or discomfort. Breathing even and unlabored with normal respirations. Call light placed within reach. Encouraged to verbalize needs and concerns. Safety and fall precautions observed and maintained. All needs attended. Will continue to monitor.
[2017-01-25 08:22] VITALS: BP 139/80
[2017-01-25] MEDS: MONTELUKAST SODIUM 10 MG TABLET PO SCH (08:28)
[2017-01-25] MEDS: AMLODIPINE 5 MG TABLET PO SCH (08:29)
[2017-01-25] MEDS: CALCITRIOL 0.25 MCG CAPSULE PO SCH (08:29)
[2017-01-25] MEDS: ALLOPURINOL 100 MG TABLET PO SCH (08:29)
[2017-01-25] MEDS: FLUTICASONE/VILANTEROL 1 EACH BLST.W.DEV INH SCH (08:30)
[2017-01-25] MEDS: ONGLYZA 5 MG PO SCH (08:30)
[2017-01-25] MEDS: HYDROMORPHONE HCL 2 MG TABLET PO PRN (08:57)
[2017-01-25] MEDS: INSULIN REGULAR, HUMAN 300 UNIT/3 ML VIAL SQ PRN ×2 (12:32→20:28)
--- NOTE | 2017-01-25 14:20 | NUR ---
INTERDISCIPLINARY TEAM CONFERENCE
--- NOTE | 2017-01-25 14:31 | NUR ---
INTERDISCIPLINARY TEAM CONFERENCE
--- NOTE | 2017-01-25 15:31 | NUR ---
Received patient sitting in bed. Alert oriented x4. No complaints of pain at this time. Call light within reach.
--- NOTE | 2017-01-25 19:30 | NUR ---
RECEIVED PATIENT FROM DAY SHIFT NURSE. PT A/O X4, LYING COMFORTABLY IN BED WITH NO SIGNS OF PAIN, SOB, OR ACUTE DISTRESS. PERTINENT ASSESSMENTS COMPLETED. NOTED WITH LLE CAST S/P LEFT ANKLE FX. CALL LIGHT PLACED WITHIN REACH OF PT. WILL CONTINUE TO MONITOR PATIENT THROUGH SHIFT.
[2017-01-25 19:40] VITALS: BP 130/73
[2017-01-25] MEDS: ATORVASTATIN 10 MG TABLET PO SCH (20:15)
[2017-01-25] MEDS: SENNOSIDES/DOCUSATE SODIUM TABLET PO SCH (20:16)
[2017-01-26] MEDS: TEMAZEPAM 15 MG CAPSULE PO PRN ×2 (00:13→20:52)
[2017-01-26] MEDS: BLOOD SUGAR DIAGNOSTIC 1 EACH STRIP VI SCH ×4 (06:35→20:54)
--- NOTE | 2017-01-26 06:45 | NUR ---
pt slept well through the night. no signs of pain, sob, or acute distress. stable through the night. all needs attended to. pt able to make needs known. medications administered as ordered. call light within reach of pt. blood sugar at 161. will endorse to day shift nurse to cover pt with insulin with breakfast meal.
--- NOTE | 2017-01-26 07:00 | NUR ---
Received pt on bed a/ox4. Able to make needs known. No distress noted. No complaints of pain or discomfort. Breathing even and unlabored with normal respirations. Call light and personal belongings placed within reach. Encouraged to verbalize needs and concerns. Safety and fall precautions observed and maintained. All needs attended. Plan of care discussed. Addendum: 01/26/17 at 0801 by VALE HERR RN cast to left lower leg clean, dry and intact. Toes with good capillary refill, able to move toes.
[2017-01-26 08:00] VITALS: BP 127/83
[2017-01-26] MEDS: INSULIN REGULAR, HUMAN 300 UNIT/3 ML VIAL SQ PRN ×4 (08:15→20:59)
[2017-01-26] MEDS: ALLOPURINOL 100 MG TABLET PO SCH (08:17)
[2017-01-26] MEDS: ONGLYZA 5 MG PO SCH (08:18)
[2017-01-26] MEDS: MONTELUKAST SODIUM 10 MG TABLET PO SCH (08:18)
[2017-01-26] MEDS: FLUTICASONE/VILANTEROL 1 EACH BLST.W.DEV INH SCH (08:18)
[2017-01-26] MEDS: CALCITRIOL 0.25 MCG CAPSULE PO SCH (08:18)
[2017-01-26] MEDS: AMLODIPINE 5 MG TABLET PO SCH (08:18)
[2017-01-26] MEDS: MAGNESIUM CITRATE 296 ML BOTTLE PO PRN (11:39)
[2017-01-26] MEDS: HYDROMORPHONE HCL 2 MG TABLET PO PRN (17:13)
[2017-01-26 19:45] VITALS: BP 124/75
[2017-01-26] MEDS: ATORVASTATIN 10 MG TABLET PO SCH (20:24)
[2017-01-26] MEDS: SENNOSIDES/DOCUSATE SODIUM TABLET PO SCH (20:24)
--- NOTE | 2017-01-27 04:48 | NUR ---
[id number] [facility] patient has ORIF of the left ankle LLE cast good capillary refill. no acute distress noted. needs attended. voiding well. denies any pain at this time. will monitor patient. possible discharge to [facility] today. no acute distress noted.
[2017-01-27] MEDS: BLOOD SUGAR DIAGNOSTIC 1 EACH STRIP VI SCH ×2 (06:29→12:07)
[2017-01-27] MEDS: MONTELUKAST SODIUM 10 MG TABLET PO SCH (08:16)
[2017-01-27] MEDS: AMLODIPINE 5 MG TABLET PO SCH (08:16)
[2017-01-27] MEDS: ALLOPURINOL 100 MG TABLET PO SCH (08:16)
[2017-01-27] MEDS: INSULIN REGULAR, HUMAN 300 UNIT/3 ML VIAL SQ PRN ×2 (08:17→12:40)
[2017-01-27] MEDS: CALCITRIOL 0.25 MCG CAPSULE PO SCH (08:18)
[2017-01-27] MEDS: ONGLYZA 5 MG PO SCH (08:19)
[2017-01-27 08:32] VITALS: BP 107/64
[2017-01-27] MEDS: FLUTICASONE/VILANTEROL 1 EACH BLST.W.DEV INH SCH (09:00)
--- NOTE | 2017-01-27 11:47 | NUR ---
pt seen on rounding. no loc changes. pt does not complain of pain on left ankle. no edema noted on toes. pt able to move toes upon assessment. toes show blistering. no bleeding noted. pt took meds whole. [facility]. will continue to monitor.
--- NOTE | 2017-01-27 18:02 | NUR ---
pt discharged at 1700 with ambulance. report given to ambulance. pt given dishcarge instructions including appointment with ortho dr singh. pt also given exit care instructions about falls, smoking cessation, and glucose control. pt verbalizes understanding. wound picture taken except incision site. no orders given to open. pt given home med ongliza to take home. pt signed belongings list signed. all copies of original copies placed in chart. pt left with a gurney. pt vitals stable no signs of acute distress.
== END 2017-01-27 16:57 | DRG 560 ==
LOC: UNDOLOA 01-20 10:30
PROVIDERS: ADMIT Physical Medicine & Rehabilitation Pain Medicine; ATTEND Physical Medicine & Rehabilitation Pain Medicine
DX: S82.892D Other fracture of left lower leg, subsequent encounter for closed fracture with routine healing (principal); N18.4 Chronic kidney disease, stage 4 (severe); E11.22 Type 2 diabetes mellitus with diabetic chronic kidney disease; E11.42 Type 2 diabetes mellitus with diabetic polyneuropathy; N17.9 Acute kidney failure, unspecified; L03.116 Cellulitis of left lower limb; W19.XXXD Unspecified fall, subsequent encounter; E11.65 Type 2 diabetes mellitus with hyperglycemia; E78.5 Hyperlipidemia, unspecified; I12.9 Hypertensive chronic kidney disease with stage 1 through stage 4 chronic kidney disease, or unspecified chronic kidney disease; J44.9 Chronic obstructive pulmonary disease, unspecified; N40.0 Benign prostatic hyperplasia without lower urinary tract symptoms; R26.9 Unspecified abnormalities of gait and mobility; G47.00 Insomnia, unspecified; I25.10 Atherosclerotic heart disease of native coronary artery without angina pectoris; I35.0 Nonrheumatic aortic (valve) stenosis; M10.9 Gout, unspecified; Z87.891 Personal history of nicotine dependence; M19.90 Unspecified osteoarthritis, unspecified site; M21.379 Foot drop, unspecified foot
CPT/HCPCS: 36415; 71010; 83735; 84100; 85025; 85730; 92507; 92523; 97110; 97112; 97116; 97530; 97535; A4663; J1815; J2543; J7050; Q0163